=== PATIENT | male | born 1965 | race Caucasian/White ===

== ENCOUNTER 2016-08-06 07:07 | Emergency (ER) | payer BC ==
[2016-08-06 07:18] VITALS: BP 152/100
--- NOTE | 2016-08-06 11:44 | UC ---
Justin Pineda Matthew, scribed for Natalie Brown DO on 08/06/16 at 0740 . Throat Pain/Nasal Shad HPI - HPI Summary HPI Summary: A 51 y/o male presents to [facility] with a gradually worsening, constant sore throat since 07/29. The pain is rated 5/10 in severity. Associated symptoms include productive cough with white phlegm, pain with swallowing, rhinorrhea, headache, minimal abdominal pain, and general body aches. The patient denies SOB , ear pain, nausea, vomiting, rashes, and urinary symptoms. He's having difficulty sleeping at night from his cough. - History of Current Complaint Chief Complaint: UCRespiratory Stated Complaint: SORE THROAT Hx Obtained From: Patient Onset/Duration: Gradual Onset, Lasting Weeks, Still Present Severity: Moderate Pain Intensity: 5 Pain Scale Used: 0-10 Numeric Cough: Productive Associated Signs & Symptoms: Positive: Nasal Discharge, Other - pain with swallowing, headache, and general body aches. Negative: Dysphagia, Drooling, Fever, Vomiting, Rash - Allergies/Home Medications Allergies/Adverse Reactions: Allergies Allergy/AdvReac Type Severity Reaction Status Date / Time No Known Allergies Allergy Verified 10/20/14 13:03 Home Medications: Home Medications [id number] W/ APAP [Tylenol Cold & Flu Severe [id number] mg] 1 PO PRN 08/06/16 [History] PMH/Surg Hx/FS Hx/Imm Hx Previously Healthy: Yes Endocrine History Of: Denies: Diabetes, Thyroid Disease Cardiovascular History Of: Denies: Cardiac Disorders, Hypertension, Pacemaker/ICD Respiratory History Of: Denies: COPD, Asthma GI/ History Of: Denies: Ulcer - Surgical History Surgical History: Yes Surgery Procedure, Year, and Place: TUMOR REMOVED FROM RT ALCOCER. RT KNEE SURGERY FOR MENISCUS. LT KNEE ACL SURGERY. *PT HAD ORBIT X-RAYS DONE 06/12/13 HE HAS METAL FRAGMENTS IN EYES SO HE IS NOT CLEARED FOR MRI* - Family History Known Family History: Positive: Cardiac Disease Family History: FHx of [place] - Social History Occupation: Employed Full-time Alcohol Use: Weekly Substance Use Type: None Smoking Status (MU): Current Every Day Smoker Amount Used/How Often: 1 ppd Review of Systems Constitutional: Negative Skin: Negative Eyes: Negative ENT: Sore Throat, Nasal Discharge Respiratory: Cough Cardiovascular: Negative Gastrointestinal: Negative Genitourinary: Negative Motor: Negative Neurovascular: Negative Musculoskeletal: Negative Neurological: Headache Psychological: Negative All Other Systems Reviewed And Are Negative: Yes Physical Exam Triage Information Reviewed: Yes Appearance: No Pain Distress, Well-Nourished, Ill-Appearing - mild Vital Signs: Initial Vital Signs Temp 99.4 F 08/06/16 07:09 Pulse 90 08/06/16 07:09 Resp 20 08/06/16 07:09 BP 152/100 08/06/16 07:09 Pulse Ox 100 08/06/16 07:09 Vital Signs Reviewed: Yes Eyes: Positive: Conjunctiva Clear. Negative: Discharge ENT: Positive: Hearing grossly normal, Pharyngeal erythema, TMs normal, Other: - Left frontal sinus tenderness. Negative: Tonsillar swelling, Tonsillar exudate, Trismus, Muffled/hoarse voice Neck: Positive: Supple, Nontender Respiratory: Positive: Chest non-tender, Lungs clear, No respiratory distress, Wheezing - few, Expiration - Prolonged Cardiovascular: Positive: RRR, No Murmur Musculoskeletal Exam: Normal Neurological: Positive: Muscle Tone Normal Psychological: Positive: Age Appropriate Behavior Skin Exam: Other - warm, dry, nomal color Throat Pain/Nasal Course/Dx - Differential Dx/Diagnosis Differential Diagnosis/HQI/PQRI: Pharyngitis, Sinusitis, Tonsillitis, URI, Other - pna Provider Diagnoses: sinusitis and acute bronchitis Discharge - Discharge Plan Condition: Stable Disposition: HOME Prescriptions: Albuterol HFA INHALER* [Ventolin HFA Inhaler*] 2 puff INH Q4H PRN #1 mdi PRN Reason: Sob/Wheezing Amoxicillin/Clavulanate TAB* [Augmentin TAB 875*] 875 mg PO BID #20 tab guaiFENesin/CODIEN 100MG-10MG* [Robitussin AC 100Mg-10Mg*] 5 - 10 ml PO BEDTIME PRN #100 udc MDD 10ml PRN Reason: Cough predniSONE TAB* [Deltasone TAB*] 40 mg PO DAILY #10 tab Patient Education Materials: Sinusitis (ED), Acute Bronchitis (ED) Referrals: Connie Segundo MD [Primary Care Provider] - If Needed Additional Instructions: TRY USING THE NETTI POT IN THE MORNINGS DISCUSSED. YOU MUST ALWAYS USE CLEAN WATER. REMEMBER, POSTURE IS AN IMPORTANT FACTOR IN SINUS DRAINAGE. MOVE YOUR NECK, BREATHE. AUGMENTIN: Augmentin is a mixture of amoxicillin and clavulanate. Amoxicillin is a member of the penicillin family. It covers the germs likely to cause ear, bronchial, and urinary infections better than plain penicillin. The addition of clavulanate allows it to cover staph infections of the skin, as well as resistant cases of ear and sinus infections. Your physician has chosen Augmentin for you because of the special nature of your situation. Augmentin is best taken with meals. Nausea after taking the medication is rare, but can occur. Diarrhea can occur, particularly in small children. Vaginal yeast infections, and oral thrush in infants are also common. Contact your physician if these problems occur. Allergy to penicillins is common. If you have had an allergic reaction to any drug of the penicillin family, you should never take any other penicillin. Notify your doctor at once if you develop hives, shortness of breath, swelling, or faintness. ANY TIME YOU TAKE AN ANTIBIOTIC, IT IS IMPORTANT TO REPLENISH THE BODY'S BALANCE OF "GOOD" BACTERIA BY EATING HIGH QUALITY CULTURED FOOD SUCH YOGURT, SAURKRAUT OR ANA CHI AND/OR TAKING A PROBIOTIC SUPPLEMENT. INHALED BRONCHODILATORS: You have received a prescription for an inhaled bronchodilator -- a medication which stimulates the airways in the lung to dilate. This improves the flow of air in asthma, bronchitis, and emphysema. These medicines have some similarity to adrenaline, and can cause similar side effects: shakiness, racing heart, and a sense of nervousness. These side effects decrease with time. Contact your doctor if these side effects are severe. Do not over-use the medicine. Too-frequent use of the inhaler may make it ineffective. Call your doctor if the inhaler is not controlling your symptoms at the prescribed doses. COUGH-SUPPRESSANT & EXPECTORANT MEDICATION: You are to use a cough medication as needed for relief of symptoms. This medicine is a combination of an expectorant (to make the mucous thinner and more easily "coughed up") and a cough suppressant (to reduce the frequency of coughing). The cough-suppressant medicine is related to narcotics. You may experience mild nausea and sleepiness. Some patients who are very sensitive to narcotics may have stomach pain from this medicine. Taking the medicine with food reduces these side effects. Do not drive or work with machinery until you know how this medicine affects you. The expectorant should have no side effects. Iodine-containing expectorants (such as organidin) should not be taken by persons with active thyroid disease unless approved by your doctor. Call the doctor if you develop shortness of breath, hives, rash, itching, lightheadedness, or severe nausea and vomiting. CORTICOSTEROID MEDICATION: You have been given a medicine of the cortisone class. This medication is used to control inflammation or allergy. It is usually only given for a short period of time, until the acute process subsides. There are usually no side effects from short-term use of cortisone-like medications. Some persons feel an increased sense of well-being and are not sleepy at bedtime. Long-term use of cortisone medications is best avoided, unless required for a severe condition. If your condition does not remit, or relapses after the course of corticosteroid medication, you should consult your physician. Contact the physician if you develop lightheadedness, black or tarry stools , swelling of the legs, or significant rapid change in weight. The documentation as recorded by the Justin son Matthew accurately reflects the service I personally performed and the decisions made by me, Natalie Brown DO.
== END 2016-08-06 08:45 | disposition home or self-care (01) ==
LOC: UCEAST 07:07
DX: J32.9 Chronic sinusitis, unspecified (principal); J20.9 Acute bronchitis, unspecified; F17.210 Nicotine dependence, cigarettes, uncomplicated
CPT/HCPCS: 87651; 99212; G0463

== ENCOUNTER → 2016-10-04 | Emergency (ER) | payer BC ==
[~2016-10-04] MED LIST: Cyclobenzaprine TAB* 10 MG PO ONE; Ketorolac INJ* 60 MG/2 ML VIAL IM ONE
--- NOTE | 2016-10-04 15:00 | ED ---
Back Pain - HPI Summary HPI Summary: Patient has acute on chronic back and neck pain that has gotten worse without known cause. He has not been working for the past three weeks due to his pain. He takes 800mg of ibuprofen twice daily without relief and has used ice with minimal relief. He denies new trauma, no N/T, or incontinence of urine or stool. He has not been in contact with his PCP. - History of Current Complaint Chief Complaint: EDBackInjuryPain Stated Complaint: LOWER BACK,SHOULDER,NECK PAIN Hx Obtained From: Patient Onset/Duration: Gradual Onset, Lasting Weeks, Still Present Onset/Duration: Started Weeks Ago, Still Present Timing: Constant Severity Initially: Moderate Severity Currently: Severe Pain Intensity: 8 Character: Dull, Aching, Stiffness Aggravating Symptom(s): Movement, Walking Alleviating Symptom(s): Nothing Associated Signs And Symptoms: Positive: Negative Related History: Previous Back Injury - Allergies/Home Medications Allergies/Adverse Reactions: Allergies Allergy/AdvReac Type Severity Reaction Status Date / Time No Known Allergies Allergy Verified 10/20/14 13:03 PMH/Surg Hx/FS Hx/Imm Hx Previously Healthy: Yes Endocrine/Hematology History: Denies: Hx Diabetes, Hx Thyroid Disease Cardiovascular History: Denies: Hx Hypertension, Hx Pacemaker/ICD Respiratory History: Denies: Hx Asthma, Hx Chronic Obstructive Pulmonary Disease (COPD) GI History: Denies: Hx Ulcer Musculoskeletal History: Reports: Hx Back Problems Sensory History: Denies: Hx Hearing Aid Psychiatric History: Denies: Hx Panic Disorder - Surgical History Surgery Procedure, Year, and Place: TUMOR REMOVED FROM RT ALCOCER. RT KNEE SURGERY FOR MENISCUS. LT KNEE ACL SURGERY. *PT HAD ORBIT X-RAYS DONE 06/12/13 HE HAS METAL FRAGMENTS IN EYES SO HE IS NOT CLEARED FOR MRI* Infectious Disease History: Denies: Hx Clostridium Difficile, Hx Hepatitis, Hx Human Immunodeficiency Virus (HIV), Hx of Known/Suspected MRSA, Hx Shingles, Hx Tuberculosis, Traveled Outside the [place] in Last 30 Days - Family History Known Family History: Positive: Cardiac Disease Family History: FHx of [place] - Social History Occupation: Employed Full-time Lives: Alone Alcohol Use: Weekly Substance Use Type: Reports: None Smoking Status (MU): Current Every Day Smoker Amount Used/How Often: 1 ppd Cessation Counseling: Patient Advised to Stop Review of Systems Positive: Myalgia. Negative: Decreased ROM, Edema Negative: Bruising Negative: Weakness, Paresthesia, Numbness All Other Systems Reviewed And Are Negative: Yes Physical Exam Triage Information Reviewed: Yes Vital Signs On Initial Exam: Initial Vitals Temp Pulse Resp BP Pulse Ox 97.7 F 90 20 147/87 98 10/04/16 10:42 10/04/16 10:42 10/04/16 10:42 10/04/16 10:42 10/04/16 10:42 Vital Signs Reviewed: Yes Appearance: Positive: Well-Appearing, Well-Nourished, Pain Distress Skin: Positive: Warm, Skin Color Reflects Adequate Perfusion, Dry, Soft Head/Face: Positive: Normal Head/Face Inspection Eyes: Positive: EOMI, SANTY, Conjunctiva Clear ENT: Positive: Hearing grossly normal Neck: Positive: Supple, No Lymphadenopathy, Tenderness @ - patient is hypersensitive to light touch over bilateral trapezius muscle and non-tender over cervical spine Respiratory/Lung Sounds: Positive: Clear to Auscultation, Breath Sounds Present Cardiovascular: Positive: RRR Abdomen Description: Positive: Nontender, Soft Bowel Sounds: Positive: Present Musculoskeletal: Positive: Limited @ - patient refuses to move due to pain, Pain @ - patient is hypersensitive to light touch over bilateral SI joints, lumbar spine and bilateral buttocks. Negative: Edema Left, Edema Right Neurological: Positive: Sensory/Motor Intact, Alert, Oriented to Person Place, Time, Reflexes Intact, NV Bundle Intact Distally, Abnormal Gait Psychiatric: Positive: Anxious AVPU Assessment: Alert Diagnostics - Vital Signs Vital Signs Temp Pulse Resp BP Pulse Ox 10/04/16 12:33 87 20 153/73 100 10/04/16 10:42 97.7 F 90 20 147/87 98 - Laboratory Lab Statement: Any lab studies that have been ordered have been reviewed, and results considered in the medical decision making process. Re-Evaluation - Re-Evaluation First Eval Re-Evaluation Time: 15:00 Change: Improved Comment: pain decreased Back Pain Course/Dx - Diagnoses Differential Diagnosis/HQI/PQRI: Positive: Aneurysm, Cauda Equina Syndrome, Compressive Cord Syndrome, Fracture, Herniated Disc, Strain, Sprain Provider Diagnoses: Acute exacerbation of chronic low back pain, Chronic neck pain Discharge - Discharge Plan Condition: Stable Disposition: HOME Prescriptions: Cyclobenzaprine TAB* [Flexeril 10 MG TAB*] 10 mg PO TID PRN #15 tab PRN Reason: Pain Ibuprofen TAB* [Motrin TAB* 800 MG] 800 mg PO TID PRN #30 tab PRN Reason: Pain Patient Education Materials: Chronic Back Pain (ED) Referrals: Connie Segundo MD [Primary Care Provider] - Additional Instructions: Please begin taking Ibuprofen 800mg three times daily with meals tomorrow evening with dinner for the next 3-5 days. Use the muscle relaxer as needed with ice or heat. Follow-up with your primary care provider in 1-3 days to discuss treatment options.
[2016-10-04 15:02] VITALS: BP 144/92
== END | disposition home or self-care (01) ==
LOC: ED 10:41
DX: M54.2 Cervicalgia (principal); F17.210 Nicotine dependence, cigarettes, uncomplicated
CPT/HCPCS: 96372; 99282; A9270-GY; J1885

== ENCOUNTER 2017-04-16 20:57 | Emergency (ER) | payer BC ==
[2017-04-16] MEDS ORDERED: Ibuprofen TAB* 800 MG PO ONE (21:41)
[2017-04-16 22:11] LABS: Urine Bilirubin Negative (Negative); Urine Glucose Negative (Negative); Urine Nitrite Negative (Negative)
--- NOTE | 2017-04-16 22:26 | ED ---
Psychiatric Complaint - HPI Summary HPI Summary: Patient presents to the ED with police after GF called the police with concern for patients safety. He states he wanted to have a hug so "said some stuff" that he shouldnt have said and she called the police. He notes to drinking ETOH tonight (8-10 beers), denies drugs, patient is smoker. Denies previous history of depression or anxiety. Denies SI/HI or self harm. He notes to diffuse pain all over at baseline which he takes ibuprofen, but denies other health problems. - History Of Current Complaint Chief Complaint: EDMentalHealth Time Seen by Provider: 04/16/17 21:34 Hx Obtained From: Patient Onset/Duration: Gradual Onset Timing: Constant Severity Initially: Moderate Severity Currently: Moderate Character: Depressed Aggravating Factor(s): Nothing, Alcohol Use Alleviating Factor(s): Nothing Associated Signs And Symptoms: Positive: Negative Related History: Positive For: Prior Psychiatric Issues Ingestion History: Amount Ingested - 8-10 beers - Risk Factor(s) Completed Suicide Risk Factors: Male, White [place] - Allergies/Home Medications Allergies/Adverse Reactions: Allergies Allergy/AdvReac Type Severity Reaction Status Date / Time No Known Allergies Allergy Verified 10/20/14 13:03 PMH/Surg Hx/FS Hx/Imm Hx Previously Healthy: Yes Endocrine/Hematology History: Denies: Hx Diabetes, Hx Thyroid Disease Cardiovascular History: Denies: Hx Hypertension, Hx Pacemaker/ICD Respiratory History: Denies: Hx Asthma, Hx Chronic Obstructive Pulmonary Disease (COPD) GI History: Denies: Hx Ulcer Musculoskeletal History: Reports: Hx Back Problems Sensory History: Denies: Hx Hearing Aid Psychiatric History: Denies: Hx Panic Disorder - Surgical History Surgery Procedure, Year, and Place: TUMOR REMOVED FROM RT ALCOCER. RT KNEE SURGERY FOR MENISCUS. LT KNEE ACL SURGERY. *PT HAD ORBIT X-RAYS DONE 06/12/13 HE HAS METAL FRAGMENTS IN EYES SO HE IS NOT CLEARED FOR MRI* - Immunization History Date of Influenza Vaccine: has not received Hx Pertussis Vaccination: No Immunizations Up to Date: Unable to Obtain/Confirm Infectious Disease History: No Infectious Disease History: Denies: Hx Clostridium Difficile, Hx Hepatitis, Hx Human Immunodeficiency Virus (HIV), Hx of Known/Suspected MRSA, Hx Shingles, Hx Tuberculosis, Traveled Outside the [place] in Last 30 Days - Family History Known Family History: Positive: Cardiac Disease Family History: FHx of [place] - Social History Occupation: Employed Full-time Lives: With Family Alcohol Use: Daily Hx Substance Use: Yes Substance Use Type: Reports: Marijuana Substance Use Comment - Amount & Last Used: used this date Hx Tobacco Use: Yes Smoking Status (MU): Current Every Day Smoker Amount Used/How Often: 1 ppd Review of Systems Constitutional: Negative Negative: Fever, Chills, Fatigue Eyes: Negative Cardiovascular: Negative Respiratory: Negative Genitourinary: Negative Positive: no symptoms reported, see HPI Musculoskeletal: Negative Neurological: Negative Psychological: Normal All Other Systems Reviewed And Are Negative: Yes Physical Exam Triage Information Reviewed: Yes Vital Signs On Initial Exam: Initial Vitals Temp Pulse Resp BP Pulse Ox 98.7 F 110 20 165/103 94 04/16/17 21:01 04/16/17 21:01 04/16/17 21:01 04/16/17 21:01 04/16/17 21:01 Vital Signs Reviewed: Yes Appearance: Positive: Well-Appearing, Well-Nourished - appears intoxicated Skin: Positive: Skin Color Reflects Adequate Perfusion Head/Face: Positive: Normal Head/Face Inspection Eyes: Positive: EOMI, SANTY, Conjunctiva Clear Neck: Positive: Supple, Nontender, No Lymphadenopathy Respiratory/Lung Sounds: Positive: Clear to Auscultation, Breath Sounds Present Cardiovascular: Positive: RRR, Pulses are Symmetrical in both Upper and Lower Extremities Musculoskeletal: Positive: Normal, Strength/ROM Intact Neurological: Positive: Speech Normal Psychiatric: Positive: Normal AVPU Assessment: Alert - Marta Coma Scale Best Eye Response: 4 - Spontaneous Best Motor Response: 6 - Obeys Commands Best Verbal Response: 5 - Oriented Diagnostics - Vital Signs Vital Signs Temp Pulse Resp BP Pulse Ox 04/16/17 21:01 98.7 F 110 20 165/103 94 - Laboratory Lab Results: Lab Results 04/16/17 Range/Units 22:00 Urine Color Colorless Urine Appearance Clear Urine pH 6.0 (5-9) Ur Specific [place] 1.001 L (1.010-1.030) Urine Protein Negative (Negative) Urine Ketones Negative (Negative) Urine Blood Negative (Negative) Urine Nitrate Negative (Negative) Urine Bilirubin Negative (Negative) Urine Urobilinogen Negative (Negative) Ur Leukocyte Esterase Negative (Negative) Urine Glucose Negative (Negative) Result Diagrams: 04/16/17 22:11 04/16/17 22:11 Lab Statement: Any lab studies that have been ordered have been reviewed, and results considered in the medical decision making process. Course/Dx - Course Course Of Treatment: Patient is evaluated for ETOh use/depression/suicidal ideation. He denies SI. ETOH. - Differential Dx/Clinical Impression Differential Diagnosis/HQI/PQRI: Positive: Suicidal Ideation Provider Diagnosis: Alcohol intoxication Discharge - Discharge Plan Condition: Stable Disposition: HOME Patient Education Materials: Depression (ED), Alcohol Intoxication (ED) Referrals: Connie Segundo MD [Primary Care Provider] -
[2017-04-16 22:30] LABS: Hematocrit 45 % (42-52); Hemoglobin 15.1 g/dl (14.0-18.0); Mean Corpuscular HGB Conc 34 g/dl (31-36); Mean Corpuscular Hemoglobin 30 pg (27-31); Mean Corpuscular Volume 88 fL (80-94); Mean Platelet Volume 8 um3 (7.4-10.4); Red Blood Count 5.07 10^6/ul (4.0-5.4); Red Cell Distribution Width 16 % (10.5-15)
[2017-04-16 22:33] LABS: Benzodiazepine Urine Screen None Detected (None Detect)
[2017-04-16 22:41] LABS: ALT 34 U/L (7-52); AST 26 U/L (13-39); Albumin 4.3 g/dL (3.2-5.2); Alkaline Phosphatase 80 U/L (34-104); Anion Gap 12 mmol/L (2-11); BUN/Creatinine Ratio 9.2 (8-20); Blood Urea Nitrogen 9 mg/dL (6-24); CO2 Carbon Dioxide 23 mmol/L (22-32); Calcium 9.1 mg/dL (8.6-10.3); Chloride 104 mmol/L (101-111); EGFR African American 104.1 (>60); Globulin 2.7 g/dL (2-4); Glucose 107 mg/dL (70-100); Sodium 139 mmol/L (133-145)
[2017-04-16 22:52] LABS: Acetaminophen < 15 mcg/mL; Alcohol 167 mg/dL (<10); Salicylate < 2.50 mg/dL (<30)
[2017-04-16 23:08] LABS: TSH (Thyroid Stimulating Horm) 1.85 mcIU/mL (0.34-5.60)
[2017-04-16] MEDS ORDERED: Nicotine GUM* 2 MG PO PRN (23:23)
[2017-04-17] MEDS ORDERED: Nicotine GUM* 2 MG ONE (00:36)
[2017-04-17 01:08] VITALS: BP 160/93
== END 2017-04-17 02:41 | disposition home or self-care (01) ==
LOC: ED 20:57
DX: F10.129 Alcohol abuse with intoxication, unspecified (principal); Y90.9 Presence of alcohol in blood, level not specified
CPT/HCPCS: 36415; 80053; 80307; 80320; 80329; 81003; 84443; 85025; 99285; A9270-GY; G0480

== ENCOUNTER 2018-09-14 10:33 | Emergency (ER) | payer BC ==
--- NOTE | 2018-09-14 11:05 | ED ---
Back Pain - HPI Summary HPI Summary: This patient is a 53 year old male presenting to [facility] with a chief complaint of back pain. 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 He states the pain is on the left side and radiates to his bilateral lower extremities and that he has nerve damage in his back. Pain is located in the lower lumbar. He rates his pain 10/10 in severity. Pt denies any fever, chills, erythema of eyes, sore throat, CP, SOB, cough, abdominal pain, N/V, dysuria, hematuria, myalgia, edema, rash, or dizziness. Pt takes Ibuprofen for the pain. - History of Current Complaint Chief Complaint: EDBackInjuryPain Stated Complaint: BACK PAIN PER PT Time Seen by Provider: 09/14/18 10:50 Hx Obtained From: Patient Onset/Duration: Atraumatic Timing: Constant Back Pain Location: Radiates To - bilateral LE Severity Initially: Severe Severity Currently: Severe Pain Intensity: 10 Pain Scale Used: 0-10 Numeric - Allergies/Home Medications Allergies/Adverse Reactions: Allergies Allergy/AdvReac Type Severity Reaction Status Date / Time No Known Allergies Allergy Verified 09/14/18 10:38 PMH/Surg Hx/FS Hx/Imm Hx Endocrine/Hematology History: Denies: Hx Diabetes, Hx Thyroid Disease Cardiovascular History: Denies: Hx Hypertension, Hx Pacemaker/ICD Respiratory History: Denies: Hx Asthma, Hx Chronic Obstructive Pulmonary Disease (COPD) GI History: Denies: Hx Ulcer Musculoskeletal History: Reports: Hx Back Problems Sensory History: Denies: Hx Hearing Aid Psychiatric History: Denies: Hx Eating Disorder, Hx Panic Disorder - Surgical History Surgery Procedure, Year, and Place: TUMOR REMOVED FROM RT ALCOCER. RT KNEE SURGERY FOR MENISCUS. LT KNEE ACL SURGERY. *PT HAD ORBIT X-RAYS DONE 06/12/13 HE HAS METAL FRAGMENTS IN EYES SO HE IS NOT CLEARED FOR MRI* - Immunization History Date of Influenza Vaccine: has not received Infectious Disease History: No Infectious Disease History: Denies: Hx Clostridium Difficile, Hx Hepatitis, Hx Human Immunodeficiency Virus (HIV), Hx of Known/Suspected MRSA, Hx Shingles, Hx Tuberculosis, Traveled Outside the [place] in Last 30 Days - Family History Known Family History: Positive: Cardiac Disease Family History: FHx of [place] - Social History Alcohol Use: Daily Hx Substance Use: Yes Substance Use Type: Reports: Marijuana Substance Use Comment - Amount & Last Used: used this date Hx Tobacco Use: Yes Smoking Status (MU): Current Every Day Smoker Amount Used/How Often: 1 ppd Review of Systems Negative: Fever, Chills Negative: Erythema Negative: Sore Throat Negative: Chest Pain Negative: Shortness Of Breath, Cough Negative: Abdominal Pain, Vomiting, Nausea Negative: dysuria, hematuria Positive: Other - Back pain. Negative: Myalgia, Edema Negative: Rash Neurological: Other - Neg: Dizziness All Other Systems Reviewed And Are Negative: No Physical Exam - Summary Physical Exam Summary: Constitutional: Well-developed, Well-nourished, Alert. (-) Distressed Skin: Warm, Dry HENT: Normocephalic; Atraumatic Eyes: Conjunctiva normal Neck: Musculoskeletal ROM normal neck. (-) JVD, (-) Stridor, (-) Tracheal deviation Cardio: Rhythm regular, rate normal, Heart sounds normal; Intact distal pulses; The pedal pulses are 2+ and symmetric. Radial pulses are 2+ and symmetric. (-) Murmur Pulmonary/Chest wall: Effort normal. (-) Respiratory distress, (-) Wheezes, (-) Rales Abd: Soft, (-) tenderness, (-) Distension, (-) Guarding, (-) Rebound Musculoskeletal: (-) Edema. Lower extremity strength in tact. No concern for Lymph: (-) Cervical adenopathy Neuro: Alert, Oriented x3. No concern for Cauda Equina Syndrome. Psych: Mood and affect Normal Triage Information Reviewed: Yes Vital Signs On Initial Exam: Initial Vitals Temp Pulse Resp BP Pulse Ox 97.2 F 90 16 152/105 98 09/14/18 10:35 09/14/18 10:35 09/14/18 10:35 09/14/18 10:35 09/14/18 10:35 Vital Signs Reviewed: Yes Diagnostics - Vital Signs Vital Signs Temp Pulse Resp BP Pulse Ox 09/14/18 10:35 97.2 F 90 16 152/105 98 - Laboratory Lab Statement: Any lab studies that have been ordered have been reviewed, and results considered in the medical decision making process. Back Pain Course/Dx - Course Course Of Treatment: This patient is a 53 year old male presenting to [facility] with a chief complaint of back pain. Patient has a Hx of chronic back pain and will be diagnosed with sciatia, given medication to manage the pain and the patient will be discharged with a referral to [facility]. The patient is agreeable with this plan. - Diagnoses Provider Diagnoses: Sciatica Discharge - Sign-Out/Discharge Documenting (check all that apply): Patient Departure - Discharge Patient Received Moderate/Deep Sedation with Procedure: No - Discharge Plan Condition: Stable Disposition: HOME Prescriptions: HYDROcodone/ACETAMIN 5-325 MG* [[place] 5-325 TAB*] 2 tab PO Q6H PRN #15 tab MDD 8 PRN Reason: Pain - Moderate To Severe Lidocaine PATCH 5%* [Lidoderm 5% Patch*] 1 patch TRANSDERM DAILY #14 patch predniSONE TAB* [Deltasone TAB*] 50 mg PO DAILY #4 tab Patient Education Materials: Sciatica (ED) Forms: *Work Release Referrals: [facility] [Outside] - 3 Days Additional Instructions: Follow up with [facility] in 2-3 days. Return to ED with any new or worsening symptoms. - Attestation Statements Document Initiated by Scribe: Yes Documenting Scribe: Evangelist Bergeron Provider For Whom Scribe is Documenting (Include Credential): Rufus Garcia MD Scribe Attestation: IEvangelist, scribed for Rufus Garcia MD on 09/14/18 at 1610.
[2018-09-14] MEDS ORDERED: Lidocaine PATCH 5%* 1 PATCH TRANSDERM ONE (11:07)
[2018-09-14] MEDS ORDERED: HYDROcodone/ACETAMIN 5-325 MG* 1 TAB PO ONE (11:07)
[2018-09-14] MEDS ORDERED: predniSONE TAB* 50 MG PO ONE (11:07)
[2018-09-14 11:58] VITALS: BP 160/110
[2018-09-14] MEDS ORDERED: Lidocaine Patch REMOVE* 1 NOTE MISC SCH (21:00)
== END 2018-09-14 11:55 | disposition home or self-care (01) ==
LOC: ED 10:33
DX: M54.42 Lumbago with sciatica, left side (principal); F17.210 Nicotine dependence, cigarettes, uncomplicated
CPT/HCPCS: 99282; A9270-GY; J7512

== ENCOUNTER 2019-04-30 09:39 | Emergency (ER) | payer OTHER ==
--- OUTSIDE RECORDS SUMMARY | 2019-04-30 09:45 | XMS REPORT | Summary of Care ---
:1965 Author Organization [facility] Address [address] [address] Care Team Providers Name Role Phone Javier Agee Primary Care Provider Reason for Visit Reason Comments Post-op Follow-up pain in incision area/"feels like fire" surgery 12/25 Encounter Details Date Type Department Care Team Description 03/20/2019 Office Visit Vignesh Blakely, Lumbar stenosis with 1 Jyoti Thurston MD neurogenic [place] [id number] 1 JYOTI THURSTON claudication (Primary [phone] [place] [id number] Dx) [phone] Allergies No Known Allergiesdocumented as of this encounter (statuses as of 03/20/2019) Medications Medication Sig Dispensed Refills Start Date End Date Status ibuprofen (MOTRIN) 200 Take 200 mg by 0 Active MG Oral Tab mouth EVERY SIX HOURS NEEDED for Pain. ibuprofen (MOTRIN) 800 Take 1 Tab by 90 Tab 0 03/20/2019 Active MG Oral Tab mouth THREE TIMES DAILY. 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 Alcohol Use Drinks/Week oz/Week Comments No Sex Assigned at Date Recorded Not on file Job Start Date Occupation Industry Not on file Not on file Not on file Travel History Travel Start Travel End No recent travel history available. documented as of this encounter Last Filed Vital Signs Vital Sign Reading Time Taken Comments Blood Pressure 150/90 03/20/2019 11:07 AM EST Pulse - - Temperature - - Respiratory Rate - - Oxygen Saturation - - Inhaled Oxygen Concentration - - Weight 87.5 kg (193 lb) 03/20/2019 11:07 AM EST Height 172.7 cm (5' 8") 03/20/2019 11:07 AM EST Body Mass Index 29.35 03/20/2019 11:07 AM EST documented in this encounter Progress Notes Vignesh Guerra MD - 03/20/2019 11:00 AM EST PATIENT: Emil Loredo : 1965 Date of Service: 03/20/2019 Interval note: Mr. Loredo follows up. His office was contacted by a friend of his several weeks agowith concern about drainage from his wound. As noted in his record he made several attempts to contact him for follow-up. He presented today. In talking to him today his main complaint was that of continued pain in the lower back which produces a "migraine headache". He gets pain into the medial thigh on either side. He gets numbness on occasion involving the entirety of the left leg. The rightleg he tells me is "fine". He has weakness involving the left leg when he is up and about ambulating. There is no report of any bowel bladder dysfunction. He specifically denies any incontinence. On examination both his knee and ankle reflexes were 0trace. Strength in his lower extremity appeared to be well preserved although there was significant impersistence of effort and virtually all muscle groups. He was able to walk on tiptoe with an exaggerated posture but nevertheless maintained balance. His wound appears well-healed with no evidence of erythema. There was no fullness to the incision. Vascular follow through today with a CRP and sed rate to screen for any evidence of residual significant infection. If they are normal then I will have him follow-up in 1 month. If there is evidence of elevation given the history over the last several weeks I will have him follow-up with an MRI of the lumbar spine with and without contrast. Mr. Loredo expressed significant frustration with multiple social issues presently that are clearly causing him significant consternation and producing a significant amount of stress. ICD-9-CM ICD-10-CM 1. Lumbar stenosis with neurogenic claudication 724.03 M48.062 C-REACTIVE PROTEIN SEDIMENTATION RATE documented in this encounter Plan of Treatment Name Type Priority Associated Diagnoses Order Schedule C-REACTIVE PROTEIN Lab Routine Lumbar stenosis with Expected: 03/20/2019 neurogenic claudication (Approximate), Expires: 03/20/2020 SEDIMENTATION RATE Lab Routine Lumbar stenosis with Expected: 03/20/2019 neurogenic claudication (Approximate), Expires: 03/20/2020 Health Maintenance Due Date Last Done Comments PNEUMOCOCCAL 0-64 YRS (1 of 1 1973 - PPSV23) LIPID DISORDER SCREENING 10/11/2012 10/12/2007 COLONOSCOPY SCREENING 2017 ZOSTER IMMUNIZATION SERIES (1 2017 of 2) DEPRESSION SCREENING 10/16/2019 10/15/2018, 03/07/2017 DIABETES SCREENING 11/30/2019 11/29/2018, 11/28/2018 HPV IMMUNIZATION SERIES Aged Out No longer eligible based on patient's age to complete this topic MENINGOCOCCAL VACCINE IMM Aged Out No longer eligible based on patient's age to complete this topic documented as of this encounter Results Not on filedocumented in this encounter Visit Diagnoses Diagnosis Lumbar stenosis with neurogenic claudication - Primary Spinal stenosis, lumbar region, with neurogenic claudication documented in this encounter Guarantor Name Account Type Relation to Date of Phone Billing Patient Address Emil Loredo Personal/Family 1965 [address] (Home) [place], [place] [phone] (Work) documented as of this encounter Advance Directives Code Status Date Activated Date Inactivated Comments Full Code 12/25/2018 1:35 PM Does the patient have decision making capacity? Yes Order was discussed with: Patient I discussed all options and patient/surrogate requested and agreed to: Full Code
--- OUTSIDE RECORDS SUMMARY | 2019-04-30 09:45 | XMS REPORT | Summary of Care ---
:1965 Author Organization [facility] Address [address] [facility] [place] [address] Care Team Providers Name Role Phone Javier Agee Primary Care Provider Reason for Visit Reason Comments Dizziness dizzy off and on for month or two, weak, difficulty standing Encounter Details Date Type Department Care Team Description 03/25/2019 Office Visit [facility] Loyd Gonzalez, Hypertension, unspecified type (Primary Dx); Practice [address] [facility] Chronic low back pain without sciatica, unspecified back pain laterality; [address] [place] [address] [place] [address] [phone] Allergies No Known Allergiesdocumented as of this encounter (statuses as of 03/27/2019) Medications Medication Sig Dispensed Refills Start Date End Date Status benazepril Take 1 Tab by 30 Tab 0 03/25/2019 Active (LOTENSIN) 10 MG mouth DAILY. Oral TabIndications: Hypertension, unspecified type gabapentin Take 1 Cap by 90 Cap 0 03/25/2019 Active (NEURONTIN) 100 MG mouth THREE Oral TIMES DAILY. CapIndications: Chronic low back pain without sciatica, unspecified back pain laterality ibuprofen (MOTRIN) Take 200 mg 0 03/25/2019 Discontinued 200 MG Oral Tab by mouth EVERY SIX HOURS NEEDED for Pain. ibuprofen (MOTRIN) Take 1 Tab by 90 Tab 0 03/20/2019 03/25/2019 Discontinued 800 MG Oral Tab mouth THREE TIMES DAILY. 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 Shoulder pain 09/13/2007 documented as of this encounter (statuses as of 03/27/2019) Social History Tobacco Use Types Packs/Day Years [...] Sign Reading Time Taken Comments Blood Pressure 154/84 03/25/2019 12:06 PM EST Pulse 90 03/25/2019 11:49 AM EST Temperature 37.4 03/25/2019 11:49 AM EST C (99.4 F) Respiratory Rate 22 03/25/2019 11:49 AM EST Oxygen Saturation 98% 03/25/2019 11:49 AM EST Inhaled Oxygen Concentration - - Weight 86.2 kg (190 lb) 03/25/2019 11:49 AM EST Height 172.7 cm (5' 8") 03/25/2019 11:49 AM EST Body Mass Index 28.89 03/25/2019 11:49 AM EST documented in this encounter Progress Notes Loyd Gonzalez, DO - 03/25/2019 11:20 AM EST PATIENT: Emil Loredo : 1965 DATE OF SERVICE: 03/25/2019 CHIEF COMPLAINT: Chief Complaint Patient presents with Dizziness dizzy off and on for month or two, weak, difficulty standing Subjective HISTORY OF PRESENT ILLNESS: Emil Loredo is a 54-y.o. male. HPI Here for few issues Last 2 weeks. Getting dizziness for few seconds only in relation to getting up from sitting or laying down. Otherwise no dizziness No passing out No chest pain No palpitations Hydration level is not great HTN: Based on today's and [facility] No chest pain Chronic back pain Not going into legs anymore after surgery Past Medical History: Diagnosis Date Shoulder pain 09/13/2007 Family History Problem Relation Age of Onset Thyroid Mother Diabetes Father AODM d/x age 50's Heart Father stent at age 69 Current Outpatient Medications Medication Sig benazepril (LOTENSIN) 10 MG Oral Tab Take 1 Tab by mouth DAILY. gabapentin (NEURONTIN) 100 MG Oral Cap Take 1 Cap by mouth THREE TIMES DAILY. No current facility-administered medications for this visit. No Known Allergies Social History Socioeconomic History Marital status: Single Spouse name: Not on file Number of children: Not on file Years of education: Not on file Highest education level: Not on file Occupational History Not on file Social Needs Financial resource strain: Not on file Food insecurity: Worry: Not on file Inability: Not on file Transportation needs: Medical: Not on file Non-medical: Not on file Tobacco Use Smoking status: Current Every Day Smoker Packs/day: 1.00 Years: 25.00 Pack years: 25.00 Types: Cigarettes Smokeless tobacco: Never Used Tobacco comment: quit date? Substance and Sexual Activity Alcohol use: No Drug use: Yes Comment: weekend marijuana Sexual activity: Yes Partners: Female Lifestyle Physical activity: Days per week: Not on file Minutes per session: Not on file Stress: Not on file Relationships Social connections: Talks on phone: Not on file Gets together: Not on file Attends congregation service: Not on file Active member of club or organization: Not on file Attends meetings of clubs or organizations: Not on file Relationship status: Not on file Intimate partner violence: Fear of current or ex partner: Not on file Emotionally abused: Not on file Physically abused: Not on file Forced sexual activity: Not on file Other Topics Concern Back Care Not Asked Bike Helmet Not Asked Blood Transfusions No Caffeine Concern Not Asked Exercise Not Asked Hobby Hazards Yes Comment: hunting/fishing International Travel Not Asked Service Not Asked Occupational Exposure Not Asked Seat Belt Not Asked Self-Exams Not Asked Sleep Concern Not Asked Special Diet Not Asked Stress Concern Not Asked Weight Concern Not Asked Social History [facility] It Train[employer]. Lives with gf x 19 years. 2 children daughter age 17, son age 14 Routine exercise: on the job (construction). Pets: 11 dogs. Few cats 5-6 REVIEW OF SYSTEMS: Review of Systems Constitutional: Negative for fever. Cardiovascular: Negative for leg swelling. Neurological: Negative for headaches. Objective PHYSICAL EXAM: VITALS: BP 154/84 | Pulse 90 | Temp 99.4 F (37.4 C) (Tympanic) | Resp 22 | Ht 5' 8" (1.727 m) | Wt 190 lb (86.2 kg) | SpO2 98% | BMI 28.89 kg /m Body mass index is 28.89 kg/m. Physical Exam Constitutional: Appearance: Normal appearance. HENT: Head: Normocephalic and atraumatic. Mouth/Throat: Mouth: Mucous membranes are moist. Pharynx: Oropharynx is clear. Cardiovascular: Rate and Rhythm: Normal rate and regular rhythm. Pulmonary: Effort: Pulmonary effort is normal. Breath sounds: Normal breath sounds. Neurological: Mental Status: He is alert. ASSESSMENT / IMPRESSION: ICD-9-CM ICD-10-CM 1. Hypertension, unspecified type 401.9 I10 benazepril (LOTENSIN) 10 MG Oral Tab 2. Chronic low back pain without sciatica, unspecified back pain laterality 724.2 M54.5 gabapentin (NEURONTIN) 100 MG Oral Cap 338.29 G89.29 3. Orthostatic dizziness 780.4 R42 Plan HTN: start acei. See PCP in 3-4 weeks Dizziness: take time to get up. Push fluids more. Back pain: trial of gabapentin. Warned about dizziness Author: Loyd Gonzalez DO 03/27/2019 13:03 documented in this encounter Plan of Treatment Date Type Specialty Care Team Description 04/12/2019 Office Visit Family Practice Javier Agee MD [address] [place] [address] [phone] Health Maintenance Due Date Last Done Comments PNEUMOCOCCAL 0-64 YRS (1 of 1 1973 - PPSV23) LIPID DISORDER SCREENING 10/11/2012 10/12/2007 Colonoscopy 2017 ZOSTER IMMUNIZATION SERIES (1 2017 of [...] filedocumented in this encounter Visit Diagnoses Diagnosis Hypertension, unspecified type - Primary Chronic low back pain without sciatica, unspecified back pain laterality Orthostatic dizziness documented in this encounter Guarantor Name Account Type Relation to Date of Phone Billing Patient Address Emil Loredo Personal/Family 1965 [address] (Home) [place], [place] [phone] (Work) documented as of this encounter Advance Directives Code Status Date Activated Date Inactivated Comments Full Code 12/25/2018 1:35 PM Does the patient have decision making capacity? Yes Order was discussed with: Patient I discussed all options and patient/surrogate requested and agreed to: Full Code
[2019-04-30 09:50] VITALS: BP 143/84
[2019-04-30] MEDS ORDERED: Ketorolac INJ* 30 MG/ML 1 ML VIAL IM ONE (10:07)
--- NOTE | 2019-04-30 10:13 | UC ---
Back Pain HPI - HPI Summary HPI Summary: 54-year-old male with right-sided sciatica which started over the past few days. He had back surgery 4 months ago and states that he had a wound infection which healed with oral antibiotics no other complications. He states he has chronic right-sided sciatica because of the pinched sciatic nerve and he had that before this back surgery. He denies any saddle anesthesia. He states that he always has some numbness and tingling in both legs and that was chronic before the surgery and has been chronic after the surgery. He denies any difficulty urinating and no difficulty moving his bowels. He has not fallen nor had any specific injury other than doing too much over the past few days in preparation for Raquel. We spoke at length about the postsurgical infection and he confirms that it was only the infection around the sutures and not a deeper infection he had no further CAT scans, MRIs or x-rays during that time. Again he states the wound infection cleared up with oral antibiotics and without any further complications. The numbness and tingling that he feels today in his legs he states is no different than what he has had chronically even before the surgery. - History of Current Complaint Chief Complaint: UCBackPain Stated Complaint: BACK PAIN Time Seen by Provider: 04/30/19 09:59 Hx Obtained From: Patient Onset/Duration: Gradual Onset, Lasting Days Timing: Constant Severity Initially: Moderate Severity Currently: Moderate Pain Intensity: 10 Character: Sharp - Patient states this is his usual sciatica with sharp pain in his right buttock shooting down his leg. Aggravating Factor(s): Movement, Lifting Alleviating Factor(s): Nothing Associated Signs And Symptoms: Positive: Numbness, Tingling - Patient states he has chronic numbness and tingling to his legs and this is nothing different than his chronic symptoms.. 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 RT KNEE SURGERY FOR MENISCUS. LT KNEE ACL SURGERY. *PT HAD ORBIT X-RAYS DONE 06/12/13 HE HAS METAL FRAGMENTS IN EYES SO HE IS NOT CLEARED FOR MRI* - Family History Known Family History: Positive: Cardiac Disease Family History: FHx of [place] - Social History Alcohol Use: Occasionally Alcohol Amount: per patient is in recovery Substance Use Type: Marijuana Substance Use Comment - Amount & Last Used: used this date Smoking Status (MU): Current Every Day Smoker Amount Used/How Often: 1 ppd Household Exposure Type: Cigarettes Review of Systems All Other Systems Reviewed And Are Negative: Yes Motor: Positive: Negative Neurovascular: Positive: Decreased Sensation - The decreased sensation in his legs is for him and no worsening at this time. Musculoskeletal: Positive: Negative Neurological: Positive: Paresthesia, Numbness - As stated previously the patient has chronic numbness and tingling in his legs which he has had for years. Is Patient Immunocompromised?: No Physical Exam Triage Information Reviewed: Yes Appearance: Well-Appearing, No Pain Distress, Well-Nourished Vital Signs: Initial Vital Signs Temp 97.6 F 04/30/19 09:46 Pulse 86 04/30/19 09:46 Resp 18 04/30/19 09:46 BP 143/84 04/30/19 09:46 Pulse Ox 100 04/30/19 09:46 Vital Signs Reviewed: Yes Respiratory: Positive: Lungs clear, Normal breath sounds, No respiratory distress, No accessory muscle use Cardiovascular: Positive: RRR, No Murmur, Pulses Normal, Brisk Capillary Refill Abdomen Description: Positive: Nontender, No Organomegaly, Soft. Negative: CVA Tenderness (R), CVA Tenderness (L), Distended, Guarding, Hepatomegaly, Splenomegaly Bowel Sounds: Positive: Present Musculoskeletal: Positive: Strength Intact, ROM Intact, Other: - Positive straight leg raise on the right. Pain on palpation to the right buttock. Neurological: Positive: Alert, Muscle Tone Normal - Good peripheral pulses, neuro sensation, capillary refill. Reflexes at the knee zero, however patient states that in his lifetime he has never had reflexes at the knees. Psychological Exam: Normal Skin Exam: Normal Back Pain Course/Dx - Course Course Of Treatment: The patient at times appears mildly uncomfortable however then he'll move around on the stretcher with as though he has no pain. He was given Toradol 30 mg IM, prescription for Flexeril and a prescription for Percocet and he is to follow-up with his primary care provider or back specialist in the next 3 or 4 days if no improvement. He was advised to apply heat or ice to the sore area and limit movements that cause pain. - Differential Dx/Diagnosis Provider Diagnosis: Right sided sciatica Discharge ED - Sign-Out/Discharge Documenting (check all that apply): Patient Departure All imaging exams completed and their final reports reviewed: No Studies - Discharge Plan Condition: Fair Disposition: HOME Prescriptions: Cyclobenzaprine TAB* [Flexeril 10 MG TAB*] 10 mg PO TID PRN #15 tab PRN Reason: Pain - Mild Oxycodone HCl/Acetaminophen [Percocet] 1 tab PO Q6HR PRN #8 tab MDD 6 PRN Reason: Pain - Moderate Patient Education Materials: Sciatica (ED) Referrals: Claudia Peña MD [Primary Care Provider] - Additional Instructions: Avoid movements and activities that cause pain. Follow-up with your primary care provider or back specialist in 3 or 4 days if no improvement. Apply ice or heat to the sore area which ever feels better. Avoid long car drives, avoid long periods of sitting or standing. Go to the emergency room if you develop worsening symptoms. He may continue to take ibuprofen 600 or 800 mg every 8 hours with food. Do not operate machinery or drive or drink alcohol while you' re taking the Percocet or Flexeril. - Billing Disposition and Condition Condition: FAIR Disposition: Home
== END 2019-04-30 10:20 | disposition home or self-care (01) ==
LOC: UCEAST 09:39
DX: M54.31 Sciatica, right side (principal); I10 Essential (primary) hypertension; R20.2 Paresthesia of skin; F17.210 Nicotine dependence, cigarettes, uncomplicated
CPT/HCPCS: 96372; 99212; G0463; J1885

== ENCOUNTER 2019-05-29 17:26 | Emergency (ER) | payer OTHER ==
--- OUTSIDE RECORDS SUMMARY | 2019-05-29 17:38 | XMS REPORT | Summary of Care ---
:1965 Author Organization [facility] Address [address] [place] [address] Care Team Providers Name Role Phone Javier Agee Primary Care Provider Reason for Visit Reason Comments Follow Up pt presents for follow up with back pain, states both sides. Encounter Details Date Type Department Care Team Description 05/07/[address] Javier Agee MD Back pain of lumbar region with sciatica (Primary Dx); Practice [address] Essential hypertension [address] [place], [place] [id number] [place] [address] [phone] Allergies No Known Allergiesdocumented as of this encounter (statuses as of 05/08/2019) Medications Medication Sig Dispensed Refills Start Date End Date Status gabapentin (NEURONTIN) Take 1 Cap by 90 Cap 0 03/25/2019 Active 100 MG Oral mouth THREE TIMES CapIndications: DAILY. Chronic low back pain without sciatica, unspecified back pain laterality benazepril (LOTENSIN) Take 1 Tab by 30 Tab 0 04/30/2019 Active 10 MG Oral mouth DAILY. TabIndications: Hypertension, unspecified type methylPREDNISolone, 1 pack as directed 1 Each 0 05/07/2019 Active dose-andrea, (MEDROL) 4 MG Oral Tablet Therapy Pack gabapentin (NEURONTIN) Take 2 Caps by 90 Cap 1 05/07/2019 Active 100 MG Oral Cap mouth THREE TIMES DAILY. lidocaine transdermal 1 Patch by Topical 30 Patch 0 05/07/2019 Active patch (LIDODERM) 5 % route DAILY. 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 Alcohol Use Drinks/Week oz/Week Comments No Sex Assigned at Date Recorded Not on file Job Start Date Occupation Industry Not on file Not on file Not on file Travel History Travel Start Travel End No recent travel history available. documented as of this encounter Last Filed Vital Signs Vital Sign Reading Time Taken Comments Blood Pressure 104/62 05/07/2019 2:12 PM EST Pulse 94 05/07/2019 2:12 PM EST Temperature - - Respiratory Rate - - Oxygen Saturation 96% 05/07/2019 2:12 PM EST Inhaled Oxygen Concentration - - Weight 87 kg (191 lb 12.8 oz) 05/07/2019 2:12 PM EST Height 172.7 cm (5' 8") 05/07/2019 2:12 PM EST Body Mass Index 29.16 05/07/2019 2:12 PM EST documented in this encounter Progress Notes Javier Agee MD - 05/07/2019 2:00 PM EST PATIENT: Emil Loredo : 1965 DATE OF SERVICE: 05/07/2019 CHIEF COMPLAINT: Chief Complaint Patient presents with Follow Up pt presents for follow up with back pain, states both sides. Subjective HISTORY OF PRESENT ILLNESS: Emil Loredo is a 54-y.o. male. Patient assigned to me for years but this the first time seeing him He has been seein primary care and neurosurgery for his back pain Been going on a few years. MRI showed some spinal stenosis Lumbar region. Pain would go down his legs He tells me left then both At first surgery was put off by the patient and opted for injections. He was also on pain meds including opioids but he says they makehim tired . Prednisone would help and he would like it all the time it sounds like he finally had surgery this year. Reports were that he felt better but then he had an infection . Was on some courses of antibiotics . No longer seems to be draining and esr /crp normal. He saw Dr Gonzalez 1 month ago and put on neurontin 100 tid but he ran out Says the meds helped withoutside effects . He also uses motrin 800 6 in a day ?? He saw Dr Gonzalez 1 month ago for dizziness. Was put on BP med and he says it helps . No longer dizzy. Report was no more pain down the legs . The back pain not discussed but was put on the neurontin so he mustve had some Today he is in complaining of pain going down the right leg this time . Walking and standing worse Denies B or B symptoms . He was given percocet and flexeril by ER on the . He told them he never got rid of the numbness down the legs after surgery Past Medical History: Diagnosis Date Shoulder pain 09/13/2007 Family History Problem Relation Age of Onset Thyroid Mother Diabetes Father AODM d/x age 50's Heart Father stent at age 69 Current Outpatient Medications Medication Sig benazepril (LOTENSIN) 10 MG Oral Tab Take 1 Tab by mouth DAILY. gabapentin (NEURONTIN) 100 MG Oral Cap Take 1 Cap by mouth THREE TIMES DAILY. gabapentin (NEURONTIN) 100 MG Oral Cap Take 2 Caps by mouth THREE TIMES DAILY. lidocaine transdermal patch (LIDODERM) 5 % Apply externally Patch 1 Patch by Topical route DAILY. 12 hours on and 12 hours off methylPREDNISolone, dose-andrea, (MEDROL) 4 MG Oral Tablet Therapy Pack 1 pack as directed No current facility-administered medications for this visit. No Known Allergies Social History Socioeconomic History Marital status: Single Spouse name: Not on file Number of children: Not on file Years of education: Not on file Highest education level: Not on file Occupational History Not on file Social Needs Financial resource strain: Not on file Food insecurity Worry: Not on file Inability: Not on file Transportation needs Medical: Not on file Non-medical: Not on file Tobacco Use Smoking status: Current Every Day Smoker Packs/day: 1.00 Years: 25.00 Pack years: 25.00 Types: Cigarettes Smokeless tobacco: Never Used Tobacco comment: quit date? 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 2 children daughter age 17, son age 14 Routine exercise: on the job (construction). Pets: 11 dogs. Few cats 5-6 REVIEW OF SYSTEMS: ROS Objective PHYSICAL EXAM: VITALS: BP 104/62 (BP Location: Left arm, Patient Position: Sitting) | Pulse 94 | Ht 5' 8" (1.727m) | Wt 191 lb 12.8 oz (87 kg) | SpO2 96% | BMI 29.16 kg /m Body mass index is 29.16 kg/m. Physical Exam Vitals signs reviewed. Constitutional: Comments: [facility] not seen him before but he is acting in pain Grimaces and makes noises due to the discomfort Seems little out of proportion Hard to understand , voice seems dry Cardiovascular: Rate and Rhythm: Normal rate and regular rhythm. Pulmonary: Effort: Pulmonary effort is normal. No respiratory distress. Skin: Comments: Well healed scar , no sign infection Slight tender to palpate low back Neurological: Comments: No DTR, strength 5/5 SLR equivocal ASSESSMENT / IMPRESSION: ICD-9-CM ICD-10-CM 1. Back pain of lumbar region with sciatica. I have the disadvantage at not seeing him prior and toknow how he has acted but he seems very uncomfortable with radicular symptoms again. If not get better he will need more imaging He blames it on pipes freezing and cold weather? Will change neurontin to 200mg and medrol pack lidoderm for his pain over the incision 724.2 M54.40 724.3 2. Essential hypertension BP better today No change to regimen 401.9 I10 3 tobacco user Plan Author: Javier Agee MD 05/08/2019 20:05 documented in this encounter Plan of Treatment Health Maintenance Due Date Last Done Comments PNEUMOCOCCAL 0-64 YRS (1 of 1 1973 - PPSV23) DTaP/Tdap/Td Vaccines (1 - 1978 Tdap) LIPID DISORDER SCREENING 10/11/2012 10/12/2007 Colonoscopy 2017 ZOSTER IMMUNIZATION SERIES (1 2017 of 2) DEPRESSION SCREENING 10/16/2019 10/15/2018, 03/07/2017 DIABETES SCREENING 11/30/2019 11/29/2018, 11/28/2018 HEPATITIS A IMMUNIZATION Aged Out No longer eligible based SERIES on patient's age to complete this topic HPV IMMUNIZATION SERIES Aged Out No longer eligible based on patient's age to complete this topic MENINGOCOCCAL VACCINE IMM Aged Out No longer eligible based on patient's age to complete this topic documented as of this encounter Results Not on filedocumented in this encounter Visit Diagnoses Diagnosis Back pain of lumbar region with sciatica Essential hypertension Unspecified essential hypertension documented in this encounter Guarantor Name Account Type Relation to Date of Phone Billing Patient Address Emil Loredo Personal/Family 1965 [address] (Home) [place], [place] [phone] [id number] (Work) documented as of this encounter Advance Directives Code Status Date Activated Date Inactivated Comments Full Code 12/25/2018 1:35 PM Does the patient have decision making capacity? Yes Order was discussed with: Patient I discussed all options and patient/surrogate requested and agreed to: Full Code
--- NOTE | 2019-05-29 17:42 | ED ---
Back Pain - HPI Summary HPI Summary: Patient complains of acute on chronic lower right back pain with radiation of pain down right leg.. History of same. History of spinal surgery December [address] Juarez amrtinez [facility]. Denies trauma, states symptoms get worse with cold. Patient taking gabapentin 200 mg and ibuprofen 1600 mg at a time with no relief in symptoms. Denies fever, cough, sore throat, CP, SOB, N/3/D, abdominal pain, change in urine, change in BM. Patient ambulatory with pain. Denies IV drug use. - History of Current Complaint Chief Complaint: EDBackInjuryPain Stated Complaint: BACK PAIN PER PT Time Seen by Provider: 05/29/19 17:32 Hx Obtained From: Patient, Family/Wing Scorer Onset/Duration: Sudden Onset, Lasting Days Onset/Duration: Started Days Ago Timing: Constant Back Pain Location: Is Discrete @, Radiates To Severity Initially: Severe Severity Currently: Severe Pain Intensity: 10 Pain Scale Used: 0-10 Numeric Character: Sharp, Aching, Throbbing, Spasmodic Aggravating Symptom(s): Movement, Lifting, Bending Alleviating Symptom(s): Rest, Position Associated Signs And Symptoms: Positive: Negative - Allergies/Home Medications Allergies/Adverse Reactions: Allergies Allergy/AdvReac Type Severity Reaction Status Date / Time No Known Allergies Allergy Verified 05/29/19 17:44 Home Medications: Home Medications Gabapentin CAP(*) [Neurontin 100 mg CAP(*)] 200 mg PO TID PRN 05/29/19 [History Confirmed 05/29/19] Ibuprofen 800 mg PO ONCE PRN 05/29/19 [History Confirmed 05/29/19] PMH/Surg Hx/FS Hx/Imm Hx Endocrine/Hematology History: Denies: Hx Diabetes, Hx Thyroid Disease Cardiovascular History: Reports: Hx Hypertension Denies: Hx Pacemaker/ICD Respiratory History: Denies: Hx Asthma, Hx Chronic Obstructive Pulmonary Disease (COPD) GI History: Denies: Hx Ulcer Musculoskeletal History: Reports: Hx Back Problems Sensory History: Denies: Hx Hearing Aid EENT History: Denies: Hx Deafness Neurological History: Denies: Hx Dementia Psychiatric History: Denies: Hx Eating Disorder, Hx Panic Disorder - Surgical History Surgery Procedure, Year, and Place: TUMOR REMOVED FROM RT ALCOCER. RT KNEE SURGERY FOR MENISCUS. LT KNEE ACL SURGERY. *PT HAD ORBIT X-RAYS DONE 06/12/13 HE HAS METAL FRAGMENTS IN EYES SO HE IS NOT CLEARED FOR MRI* - Immunization History Date of Influenza Vaccine: has not received Infectious Disease History: No Infectious Disease History: Denies: Hx Clostridium Difficile, Hx Hepatitis, Hx Human Immunodeficiency Virus (HIV), Hx of Known/Suspected MRSA, Hx Shingles, Hx Tuberculosis, Traveled Outside the [place] in Last 30 Days - Family History Known Family History: Positive: Cardiac Disease Family History: FHx of [place] - Social History Alcohol Use: Occasionally Alcohol Amount: per patient is in recovery Hx Substance Use: Yes Substance Use Type: Reports: Marijuana Substance Use Comment - Amount & Last Used: used this date Hx Tobacco Use: Yes Smoking Status (MU): Current Every Day Smoker Amount Used/How Often: 1 ppd Review of Systems Constitutional: Negative Eyes: Negative ENT: Negative Cardiovascular: Negative Respiratory: Negative Gastrointestinal: Negative Genitourinary: Negative Musculoskeletal: Other Skin: Negative Neurological: Negative Psychological: Normal All Other Systems Reviewed And Are Negative: Yes Physical Exam - Summary Physical Exam Summary: No ecchymosis, erythema, deformity, swelling, mass noted to back. Tenderness along the paraspinal muscles of the lumbar spine and lower thoracic spine. PMS intact distally bilateral lower extremities. Triage Information Reviewed: Yes Vital Signs On Initial Exam: Initial Vitals Temp Pulse Resp BP Pulse Ox 98.0 F 95 18 134/113 98 05/29/19 17:28 05/29/19 17:28 05/29/19 17:28 05/29/19 17:28 05/29/19 17:28 Vital Signs Reviewed: Yes Appearance: Positive: Well-Appearing Skin: Positive: Warm Head/Face: Positive: Normal Head/Face Inspection Eyes: Positive: Normal Neck: Positive: Supple Respiratory/Lung Sounds: Positive: Clear to Auscultation Cardiovascular: Positive: Normal Abdomen Description: Positive: Nontender Musculoskeletal: Positive: Normal Neurological: Positive: Normal Psychiatric: Positive: Normal AVPU Assessment: Alert - Marta Coma Scale Best Eye Response: 4 - Spontaneous Best Motor Response: 6 - Obeys Commands Best Verbal Response: 5 - Oriented Coma Scale Total: 15 Procedures - Sedation Patient Received Moderate/Deep Sedation with Procedure: No Diagnostics - Vital Signs Vital Signs Temp Pulse Resp BP Pulse Ox 05/29/19 17:28 98.0 F 95 18 134/113 98 - Laboratory Lab Statement: Any lab studies that have been ordered have been reviewed, and results considered in the medical decision making process. Back Pain Course/Dx - Course Course Of Treatment: Patient complains of acute on chronic lower right back pain with radiation of pain down right leg.. History of same. History of spinal surgery December [address] Pizarro at [facility]. Denies trauma, states symptoms get worse with cold. Patient taking gabapentin 200 mg and ibuprofen 1600 mg at a time with no relief in symptoms. Denies fever, cough, sore throat , CP, SOB, N/3/D, abdominal pain, change in urine, change in BM. Patient ambulatory with pain. Denies IV drug use. Vital signs within normal limits. Patient's symptoms improved with Valium 5 mg by mouth, prednisone and lidocaine patch. - Diagnoses Provider Diagnoses: Acute exacerbation of chronic low back pain Discharge ED - Sign-Out/Discharge Documenting (check all that apply): Patient Departure - Discharge Plan Condition: Stable Disposition: HOME Prescriptions: Diazepam TAB(*) [Valium TAB(*)] 5 mg PO TID PRN 2 Days #6 tab MDD 3 tabs PRN Reason: Spasms Lidocaine PATCH 5%* [Lidoderm 5% Patch*] 1 patch TRANSDERM DAILY 4 Days #4 patch predniSONE 20 mg TAB [Deltasone 20 MG TAB*] 40 mg PO DAILY 5 Days #10 tab Patient Education Materials: Chronic Back Pain (DC), Lower Back Exercises (ED) Referrals: Claudia Peña MD [Primary Care Provider] - Additional Instructions: Lidocaine patches and used for 12 hours on, then 12 hours off. One patch daily. Take prednisone 40 mg daily as an anti-inflammatory. Take Valium as directed for muscle spasm. Follow-up with primary care for further management of chronic back pain. Return to the ED for any new or worsening symptoms. - Billing Disposition and Condition Condition: STABLE Disposition: Home - Attestation Statements Provider Attestation: I was available for consultation for this patient. I did not evaluate the patient, or participate in any medical decision making or disposition decisions unless I am specifically named in the chart as having consulted on the patient. If I have consulted on the patient, please see my own ED note on the patient encounter. Torres Villanueva MD
[2019-05-29] MEDS ORDERED: Diazepam TAB(*) 5 MG PO ONE (18:12)
[2019-05-29] MEDS ORDERED: Lidocaine PATCH 5%* 1 PATCH TRANSDERM SCH (18:30)
[2019-05-29 19:19] VITALS: BP 130/87
[2019-05-29] MEDS ORDERED: Lidocaine Patch REMOVE* 1 NOTE MISC SCH (21:00)
== END 2019-05-29 19:18 | disposition home or self-care (01) ==
LOC: ED 17:26
DX: M54.5 Low back pain (principal); G89.29 Other chronic pain; I10 Essential (primary) hypertension; Z79.899 Other long term (current) drug therapy; F17.210 Nicotine dependence, cigarettes, uncomplicated
CPT/HCPCS: 99282; A9270-GY; J7512